=== PATIENT | female | born 1940 | race American Indian/Alaskan Native ===

== ENCOUNTER 2017-05-10 00:28 | Emergency (ER) | payer MEDICARE, OTHER ==
[~2017-05-10] VITALS: Ht 147.3 cm; Wt 65.0 kg
[2017-05-10] MEDS ORDERED: ZIPRASIDONE 20 MG INJ IM ONE ×2 (01:25→01:30)
[2017-05-10 06:21] VITALS: BP 102/56
== END 2017-05-10 06:26 | disposition home or self-care (01) ==
LOC: ED 00:55
DX: F10.220 Alcohol dependence with intoxication, uncomplicated (principal)
CPT/HCPCS: 96372; 99283; J3486

== ENCOUNTER 2018-01-07 21:42 | Emergency (ER) | payer MEDICARE ==
[~2018-01-07] VITALS: Ht 165.1 cm; Wt 70.0 kg
[2018-01-07] MEDS ORDERED: ONDANSETRON 2MG/ML, 2ML IVPush ONE (22:00)
[2018-01-07] MEDS ORDERED: MORPHINE SULFATE 4 MG/ML, 1ML IVPush PRN (22:00)
[2018-01-07 22:20] LABS: BASOPHILS # (AUTO) 0.05 x10^3/uL (0-0.1); BASOPHILS % (AUTO) 0 % (0-1); EOSINOPHILS # (AUTO) 0.21 x10^3/uL (0-0.4); EOSINOPHILS % (AUTO) 2 % (1-7); LYMPHOCYTES # (AUTO) 2.99 x10^3/uL (1-3.4); LYMPHOCYTES % (AUTO) 24 % (22-44); MD NO; MEAN CORPUSCULAR HEMOGLOBIN 32.6 pg (27.0-34.8); MEAN CORPUSCULAR HGB CONC 33.7 g/dL (32.4-35.8); MEAN CORPUSCULAR VOLUME 96.7 fL (80-100); MEAN PLATELET VOLUME 8.3 fL (7.4-10.4); MONOCYTES # (AUTO) 0.88 x10^3/uL (0.2-0.8); MONOCYTES % (AUTO) 7 % (2-9); NEUTROPHILS # (AUTO) 8.47 x10^3/uL (1.8-6.8); NEUTROPHILS % (AUTO) 67 % (42-75); PLATELET COUNT 287 x10^3/uL (130-400); RED BLOOD COUNT 4.35 x10^6/uL (3.82-5.3); RED CELL DISTRIBUTION WIDTH 13.7 % (9.6-15.2)
[2018-01-07 22:22] LABS: MICROSCOPIC AUTO
[2018-01-07 22:23] LABS: CULTURE INDICATED? YES
[2018-01-07 22:31] LABS: ALBUMIN 3.8 g/dL (3.4-5.0); ANION GAP 4 mmol/L (5-15); CALCIUM 9.3 mg/dL (8.5-10.1); CHLORIDE 104 mmol/L (98-107)
[2018-01-07 22:38] LABS: ALANINE AMINOTRANSFERASE 22 U/L (12-78); ALKALINE PHOSPHATASE 83 U/L (45-117); BILIRUBIN,TOTAL 0.3 mg/dL (0.2-1.0); CREATININE 0.64 mg/dL (0.55-1.02); TOTAL PROTEIN 8.3 g/dL (6.4-8.2)
[2018-01-07 22:48] VITALS: BP 138/72
[2018-01-07] MEDS ORDERED: ONDANSETRON 2MG/ML, 2ML ONE (22:49)
[2018-01-07] MEDS ORDERED: MORPHINE SULFATE 4 MG/ML, 1ML ONE (22:50)
== END 2018-01-07 23:56 | disposition home or self-care (01) ==
LOC: ED 22:51
DX: S39.012A Strain of muscle, fascia and tendon of lower back, initial encounter (principal); N30.00 Acute cystitis without hematuria; I10 Essential (primary) hypertension; E78.5 Hyperlipidemia, unspecified; X58.XXXA Exposure to other specified factors, initial encounter; Y93.89 Activity, other specified; Y92.89 Other specified places as the place of occurrence of the external cause; Y99.8 Other external cause status
CPT/HCPCS: 36415; 74176; 80053; 81001; 83690; 85025; 87077; 87086; 96374; 96375; 99285; J2405; 87186

== ENCOUNTER 2018-01-10 00:54 | Inpatient (IN) | payer MEDICARE ==
[~2018-01-10] VITALS: Ht 147.3 cm; Wt 88.7 kg
[2018-01-10] MEDS ORDERED: ONDANSETRON 2MG/ML, 2ML ONE (01:20)
[2018-01-10] MEDS ORDERED: KETOROLAC 30 MG/1 ML ONE (01:20)
[2018-01-10] MEDS ORDERED: MORPHINE SULFATE 4 MG/ML, 1ML IVPush PRN (01:30)
[2018-01-10] MEDS ORDERED: KETOROLAC 30 MG/1 ML IVPush ONE (01:30)
[2018-01-10] MEDS ORDERED: SODIUM CHLORIDE FLUSH 10ML SYR IVF ONE ×2 (01:30→03:30)
[2018-01-10 01:51] LABS: BASOPHILS # (AUTO) 0.05 x10^3/uL (0-0.1); BASOPHILS % (AUTO) 0 % (0-1); EOSINOPHILS # (AUTO) 0.02 x10^3/uL (0-0.4); EOSINOPHILS % (AUTO) 0 % (1-7); LYMPHOCYTES # (AUTO) 1.55 x10^3/uL (1-3.4); LYMPHOCYTES % (AUTO) 11 % (22-44); MD NO; MEAN CORPUSCULAR HEMOGLOBIN 32.3 pg (27.0-34.8); MEAN PLATELET VOLUME 8.1 fL (7.4-10.4); MONOCYTES # (AUTO) 0.93 x10^3/uL (0.2-0.8); MONOCYTES % (AUTO) 7 % (2-9); NEUTROPHILS # (AUTO) 11.22 x10^3/uL (1.8-6.8); NEUTROPHILS % (AUTO) 82 % (42-75); PLATELET COUNT 248 x10^3/uL (130-400); RED BLOOD COUNT 3.88 x10^6/uL (3.82-5.3); RED CELL DISTRIBUTION WIDTH 13.5 % (9.6-15.2)
[2018-01-10 02:00] LABS: ALANINE AMINOTRANSFERASE 17 U/L (12-78); ALBUMIN 3.3 g/dL (3.4-5.0); ANION GAP 5 mmol/L (5-15); CALCIUM 8.8 mg/dL (8.5-10.1); CHLORIDE 98 mmol/L (98-107); CREATININE 0.51 mg/dL (0.55-1.02)
[2018-01-10 02:02] LABS: ALKALINE PHOSPHATASE 68 U/L (45-117); BILIRUBIN,TOTAL 0.6 mg/dL (0.2-1.0); TOTAL PROTEIN 7.5 g/dL (6.4-8.2)
[2018-01-10 02:03] LABS: CULTURE INDICATED? YES; MICROSCOPIC INDICATED
[2018-01-10] MEDS ORDERED: SODIUM CHLORIDE 0.9% 1,000ML IVBOLUS ONE (03:30)
[2018-01-10] MEDS ORDERED: CEFTRIAXONE 500 MG in DEXTROSE 5% 50 ML IV SCH (03:30)
[2018-01-10] MEDS ORDERED: CEFTRIAXONE 1,000 MG in DEXTROSE 5% 50 ML IV SCH (03:30)
[2018-01-10] MEDS ORDERED: CEFTRIAXONE 1,000 MG in DEXTROSE 5% 50 ML IV ONE (04:00)
[2018-01-10] MEDS ORDERED: METHOCARBAMOL 500 MG TABLET PO PRN (05:30)
[2018-01-10] MEDS ORDERED: ONDANSETRON ODT 4 MG PO PRN (05:30)
[2018-01-10] MEDS ORDERED: KETOROLAC 30 MG/1 ML IV PRN (05:30)
[2018-01-10] MEDS ORDERED: ONDANSETRON 2MG/ML, 2ML IVPush PRN (05:30)
[2018-01-10] MEDS ORDERED: POLYETHYLENE GLYCOL 17 GM PACKET PO PRN (05:30)
[2018-01-10] MEDS ORDERED: ACETAMINOPHEN 500 MG TABLET PO PRN (05:30)
[2018-01-10] MEDS ORDERED: morphine SULFATE 10 MG/ML, 1ML IVPush PRN (05:30)
[2018-01-10] MEDS ORDERED: hydrALAzine 20 MG/ML, 1ML IVPush PRN (05:30)
[2018-01-10 06:45] VITALS: BP 127/57
[2018-01-10] MEDS: SODIUM CHLORIDE 0.9% 1,000 ML IV SCH ×2 (07:04→22:10)
[2018-01-10] MEDS: HEPARIN 5,000 UNITS/ML, 1ML SQ SCH ×3 (07:04→22:10)
[2018-01-10 12:50] VITALS: BP 100/64
[2018-01-10 19:28] VITALS: BP 125/65
[2018-01-11 02:22] VITALS: BP 126/76
[2018-01-11] MEDS ORDERED: CEFTRIAXONE 1,000 MG in SODIUM CHLORIDE 0.9% 50 ML IV SCH (04:00)
[2018-01-11] MEDS: HEPARIN 5,000 UNITS/ML, 1ML SQ SCH ×2 (05:43→13:30)
[2018-01-11 06:22] LABS: BASOPHILS # (AUTO) 0.03 x10^3/uL (0-0.1); BASOPHILS % (AUTO) 0 % (0-1); EOSINOPHILS % (AUTO) 2 % (1-7); LYMPHOCYTES % (AUTO) 27 % (22-44); MD NO; MEAN CORPUSCULAR HEMOGLOBIN 32.5 pg (27.0-34.8); MEAN CORPUSCULAR HGB CONC 33.6 g/dL (32.4-35.8); MEAN CORPUSCULAR VOLUME 96.6 fL (80-100); MEAN PLATELET VOLUME 8.6 fL (7.4-10.4); MONOCYTES # (AUTO) 0.76 x10^3/uL (0.2-0.8); MONOCYTES % (AUTO) 9 % (2-9); NEUTROPHILS # (AUTO) 5.07 x10^3/uL (1.8-6.8); NEUTROPHILS % (AUTO) 61 % (42-75); PLATELET COUNT 234 x10^3/uL (130-400); RED BLOOD COUNT 3.51 x10^6/uL (3.82-5.3); RED CELL DISTRIBUTION WIDTH 13.7 % (9.6-15.2)
[2018-01-11 06:29] LABS: ANION GAP 3 mmol/L (5-15); CALCIUM 8.6 mg/dL (8.5-10.1); CHLORIDE 105 mmol/L (98-107)
[2018-01-11 06:50] VITALS: BP 93/72
[2018-01-11] MEDS ORDERED: SULF1TAB24 PO (07:57)
[2018-01-11] MEDS: SODIUM CHLORIDE 0.9% 1,000 ML IV SCH (10:05)
== END 2018-01-11 14:48 | disposition home health service (06) | DRG 644 ==
LOC: ED 01:09 → EDIP 02:56 → 4NOR 04:04 → DCLOUNGE 01-11 14:18
PROVIDERS: ADMIT Hospitalist; ATTEND Hospitalist
DX: E22.2 Syndrome of inappropriate secretion of antidiuretic hormone (principal); N10 Acute pyelonephritis; E86.9 Volume depletion, unspecified; E03.9 Hypothyroidism, unspecified; E78.5 Hyperlipidemia, unspecified; E86.0 Dehydration; I10 Essential (primary) hypertension; M54.5 Low back pain; R11.2 Nausea with vomiting, unspecified
CPT/HCPCS: 36415; 80048; 80053; 81001; 83735; 84100; 85025; 87086; 96374; J0696; J1644; J1885; J7030

== ENCOUNTER 2018-01-17 17:47 | Emergency (ER) | payer MEDICARE ==
[~2018-01-17] VITALS: Ht 147.3 cm; Wt 79.0 kg
[~2018-01-17 17:47] MED LIST: SULF1TAB24 PO
[2018-01-17] MEDS ORDERED: OXYB10TA PO (18:00)
[2018-01-17] MEDS ORDERED: TELM80TA PO (18:00)
[2018-01-17] MEDS ORDERED: CETI10TA18 PO (18:00)
[2018-01-17] MEDS ORDERED: LEVO125T5 PO (18:00)
[2018-01-17] MEDS ORDERED: CALC-534 PO (18:00)
[2018-01-17] MEDS ORDERED: ASPI-515 PO (18:00)
[2018-01-17] MEDS ORDERED: SIMV80TA7 PO (18:00)
[2018-01-17] MEDS ORDERED: HYDR12.58 PO (18:00)
[2018-01-17] MEDS ORDERED: MELO15TA24 PO (18:00)
[2018-01-17] MEDS ORDERED: ALBU8.5H8 INH (18:00)
[2018-01-17 18:59] LABS: MD NO
[2018-01-17 19:06] LABS: BASOPHILS # (AUTO) 0.03 x10^3/uL (0-0.1); BASOPHILS % (AUTO) 1 % (0-1); EOSINOPHILS # (AUTO) 0.11 x10^3/uL (0-0.4); EOSINOPHILS % (AUTO) 2 % (1-7); LYMPHOCYTES # (AUTO) 2.03 x10^3/uL (1-3.4); LYMPHOCYTES % (AUTO) 36 % (22-44); MEAN CORPUSCULAR HEMOGLOBIN 32.8 pg (27.0-34.8); MEAN CORPUSCULAR HGB CONC 34.3 g/dL (32.4-35.8); MEAN CORPUSCULAR VOLUME 95.7 fL (80-100); MEAN PLATELET VOLUME 7.7 fL (7.4-10.4); MONOCYTES # (AUTO) 0.49 x10^3/uL (0.2-0.8); MONOCYTES % (AUTO) 9 % (2-9); NEUTROPHILS # (AUTO) 2.95 x10^3/uL (1.8-6.8); NEUTROPHILS % (AUTO) 53 % (42-75); PLATELET COUNT 375 x10^3/uL (130-400); RED BLOOD COUNT 3.96 x10^6/uL (3.82-5.3); RED CELL DISTRIBUTION WIDTH 13.6 % (9.6-15.2)
[2018-01-17 19:08] LABS: ALBUMIN 3.3 g/dL (3.4-5.0); ANION GAP 6 mmol/L (5-15); CALCIUM 9.3 mg/dL (8.5-10.1); CHLORIDE 104 mmol/L (98-107); CREATININE 0.77 mg/dL (0.55-1.02)
[2018-01-17 19:16] VITALS: BP 123/53
== END 2018-01-17 20:21 | disposition home or self-care (01) ==
LOC: ED 19:35
DX: K64.8 Other hemorrhoids (principal); I10 Essential (primary) hypertension; E78.00 Pure hypercholesterolemia, unspecified; M19.90 Unspecified osteoarthritis, unspecified site; R11.0 Nausea; R42 Dizziness and giddiness; Z90.49 Acquired absence of other specified parts of digestive tract; Z90.710 Acquired absence of both cervix and uterus
CPT/HCPCS: 36415; 80048; 82040; 85025; 99284

== ENCOUNTER 2018-01-29 14:46 | Inpatient (IN) | payer MEDICARE ==
[~2018-01-29] VITALS: Ht 147.3 cm; Wt 85.8 kg
[~2018-01-29 14:46] MED LIST changes: +ALBU8.5H8 INH; +ASPI-515 PO; +CALC-534 PO; +CETI10TA18 PO; +HYDR12.58 PO; +LEVO125T5 PO; +MELO15TA24 PO; +OXYB10TA PO; +SIMV80TA7 PO; +TELM80TA PO
[2018-01-29 15:16] LABS: BASOPHILS # (AUTO) 0.02 x10^3/uL (0-0.1); BASOPHILS % (AUTO) 0 % (0-1); EOSINOPHILS # (AUTO) 0.02 x10^3/uL (0-0.4); EOSINOPHILS % (AUTO) 0 % (1-7); LYMPHOCYTES # (AUTO) 1.19 x10^3/uL (1-3.4); LYMPHOCYTES % (AUTO) 21 % (22-44); MD NO; MEAN CORPUSCULAR HEMOGLOBIN 32.8 pg (27.0-34.8); MEAN CORPUSCULAR VOLUME 93.6 fL (80-100); MEAN PLATELET VOLUME 8.1 fL (7.4-10.4); MONOCYTES # (AUTO) 0.38 x10^3/uL (0.2-0.8); MONOCYTES % (AUTO) 7 % (2-9); NEUTROPHILS # (AUTO) 4.03 x10^3/uL (1.8-6.8); NEUTROPHILS % (AUTO) 71 % (42-75); PLATELET COUNT 331 x10^3/uL (130-400); RED BLOOD COUNT 4.18 x10^6/uL (3.82-5.3)
[2018-01-29 15:28] LABS: ALANINE AMINOTRANSFERASE 23 U/L (12-78); ALBUMIN 3.7 g/dL (3.4-5.0); ANION GAP 6 mmol/L (5-15); CALCIUM 9.4 mg/dL (8.5-10.1); CHLORIDE 96 mmol/L (98-107); CREATININE 0.55 mg/dL (0.55-1.02)
[2018-01-29 15:35] LABS: TROPONIN I < 0.015 ng/mL (0.000-0.045)
[2018-01-29 15:39] LABS: ALKALINE PHOSPHATASE 76 U/L (45-117); BILIRUBIN,TOTAL 0.4 mg/dL (0.2-1.0); THYROID STIMULATING HORMONE 0.218 mIU/L (0.358-3.740); TOTAL PROTEIN 8.4 g/dL (6.4-8.2)
[2018-01-29 16:32] LABS: MICROSCOPIC INDICATED
[2018-01-29 16:38] LABS: CULTURE INDICATED? YES
[2018-01-29] MEDS ORDERED: CEFTRIAXONE PMX 1GM/50ML 50 ML ONE (16:47)
[2018-01-29] MEDS ORDERED: SODIUM CHLORIDE 0.9% 1,000 ML IV ONE (17:00)
[2018-01-29] MEDS ORDERED: CEFTRIAXONE 1,000 MG in SODIUM CHLORIDE 0.9% 50 ML IV ONE (17:00)
[2018-01-29] MEDS ORDERED: POLYETHYLENE GLYCOL 17 GM PACKET PO PRN (17:30)
[2018-01-29] MEDS ORDERED: hydrALAzine 20 MG/ML, 1ML IVPush PRN (17:30)
[2018-01-29] MEDS: HEPARIN 5,000 UNITS/ML, 1ML SQ SCH (17:30)
[2018-01-29] MEDS ORDERED: ACETAMINOPHEN 325 MG TABLET PO PRN (17:30)
[2018-01-29] MEDS ORDERED: DOCUSATE 100 MG CAPSULE PO PRN (17:30)
[2018-01-29] MEDS ORDERED: ONDANSETRON ODT 4 MG PO PRN (17:30)
[2018-01-29] MEDS ORDERED: BISACODYL 10 MG SUPP PR PRN (17:30)
[2018-01-29] MEDS ORDERED: MORPHINE SULFATE 4 MG/ML, 1ML IVPush PRN (17:30)
[2018-01-29] MEDS ORDERED: CEFTRIAXONE 1,000 MG in SODIUM CHLORIDE 0.9% 50 ML IV SCH (17:30)
[2018-01-29 17:43] LABS: ANION GAP 4 mmol/L (5-15); CALCIUM 9.4 mg/dL (8.5-10.1); CHLORIDE 95 mmol/L (98-107); CREATININE 0.67 mg/dL (0.55-1.02)
[2018-01-29 17:45] LABS: FREE T4 (FREE THYROXINE) 1.07 ng/dL (0.76-1.46)
[2018-01-29 17:53] VITALS: BP 117/60
[2018-01-29] MEDS ORDERED: ALBUTEROL SULFATE 2.5 MG/3 ML NPPB PRN (18:00)
[2018-01-29] MEDS ORDERED: SODIUM CHLORIDE 0.9% 1,000 ML IV SCH (18:30)
[2018-01-29 19:29] VITALS: BP 104/67
[2018-01-29 19:46] LABS: ALBUMIN 3.5 g/dL (3.4-5.0); ANION GAP 4 mmol/L (5-15); CHLORIDE 97 mmol/L (98-107)
[2018-01-29 19:50] LABS: CREATININE 0.72 mg/dL (0.55-1.02)
[2018-01-29] MEDS: SIMVASTATIN 40 MG TABLET PO SCH (20:22)
[2018-01-29 22:30] LABS: ALBUMIN 3.1 g/dL (3.4-5.0); ANION GAP 4 mmol/L (5-15); CALCIUM 8.5 mg/dL (8.5-10.1); CHLORIDE 102 mmol/L (98-107); CREATININE 0.47 mg/dL (0.55-1.02)
[2018-01-30] MEDS: HEPARIN 5,000 UNITS/ML, 1ML SQ SCH ×3 (00:18→16:58)
[2018-01-30 01:07] VITALS: BP 116/74
[2018-01-30 02:33] LABS: BASOPHILS # (AUTO) 0.02 x10^3/uL (0-0.1); BASOPHILS % (AUTO) 0 % (0-1); EOSINOPHILS # (AUTO) 0.06 x10^3/uL (0-0.4); EOSINOPHILS % (AUTO) 1 % (1-7); LYMPHOCYTES # (AUTO) 2.08 x10^3/uL (1-3.4); LYMPHOCYTES % (AUTO) 33 % (22-44); MD NO; MEAN CORPUSCULAR HEMOGLOBIN 32.4 pg (27.0-34.8); MEAN CORPUSCULAR HGB CONC 34.3 g/dL (32.4-35.8); MEAN CORPUSCULAR VOLUME 94.4 fL (80-100); MEAN PLATELET VOLUME 8.2 fL (7.4-10.4); MONOCYTES # (AUTO) 0.51 x10^3/uL (0.2-0.8); MONOCYTES % (AUTO) 8 % (2-9); NEUTROPHILS # (AUTO) 3.58 x10^3/uL (1.8-6.8); NEUTROPHILS % (AUTO) 57 % (42-75); PLATELET COUNT 286 x10^3/uL (130-400); RED BLOOD COUNT 3.61 x10^6/uL (3.82-5.3)
[2018-01-30 02:38] LABS: CALCIUM 8.2 mg/dL (8.5-10.1); CHLORIDE 101 mmol/L (98-107)
[2018-01-30 02:44] LABS: ALANINE AMINOTRANSFERASE 18 U/L (12-78); ALKALINE PHOSPHATASE 58 U/L (45-117); ANION GAP 5 mmol/L (5-15); BILIRUBIN,TOTAL 0.4 mg/dL (0.2-1.0); TOTAL PROTEIN 6.7 g/dL (6.4-8.2)
[2018-01-30 03:03] LABS: AMPHETAMINE SCREEN, URINE Negative (Negative); BARBITURATE SCREEN, URINE Negative (Negative); BENZODIAZEPINE SCREEN, URINE Negative (Negative); CANNABINOID SCREEN, URINE Negative (Negative); COCAINE SCREEN, URINE Negative (Negative); METHADONE SCREEN, URINE Negative (Negative); OPIATE SCREEN, URINE Negative (Negative)
[2018-01-30 03:10] LABS: CREATININE,URINE RANDOM 47.8 mg/dL
[2018-01-30] MEDS: PANTOPRAZOLE 40 MG IV IVPush SCH (07:14)
[2018-01-30] MEDS: VALSARTAN 320 MG TABLET PO SCH (07:15)
[2018-01-30] MEDS: CETIRIZINE 10 MG TABLET PO SCH (07:15)
[2018-01-30] MEDS: LEVOTHYROXINE 125 MCG TABLET PO SCH (07:15)
[2018-01-30 07:35] LABS: ALBUMIN 3.1 g/dL (3.4-5.0); ANION GAP 7 mmol/L (5-15); CALCIUM 8.7 mg/dL (8.5-10.1); CHLORIDE 102 mmol/L (98-107); CREATININE 0.51 mg/dL (0.55-1.02)
[2018-01-30 08:30] VITALS: BP 117/68
[2018-01-30 11:00] LABS: ANION GAP 7 mmol/L (5-15); CALCIUM 8.6 mg/dL (8.5-10.1); CHLORIDE 102 mmol/L (98-107); CREATININE 0.59 mg/dL (0.55-1.02)
[2018-01-30 11:01] LABS: ALBUMIN 3.1 g/dL (3.4-5.0)
[2018-01-30 14:25] VITALS: BP 117/62
[2018-01-30 14:56] LABS: CHLORIDE 103 mmol/L (98-107)
[2018-01-30 14:57] LABS: ALBUMIN 3.1 g/dL (3.4-5.0); ANION GAP 5 mmol/L (5-15); CALCIUM 8.5 mg/dL (8.5-10.1); CREATININE 0.65 mg/dL (0.55-1.02)
[2018-01-30] MEDS: SODIUM CHLORIDE 0.9% 1,000 ML IV SCH ×2 (15:30→20:53)
[2018-01-30] MEDS: CEFTRIAXONE 1,000 MG in SODIUM CHLORIDE 0.9% 50 ML IV SCH (16:58)
[2018-01-30 19:31] VITALS: BP 98/60
[2018-01-30] MEDS: SIMVASTATIN 40 MG TABLET PO SCH (20:38)
[2018-01-31 02:19] VITALS: BP 97/53
[2018-01-31] MEDS: HEPARIN 5,000 UNITS/ML, 1ML SQ SCH ×3 (04:22→20:28)
[2018-01-31 06:22] LABS: CHLORIDE 105 mmol/L (98-107)
[2018-01-31 06:38] LABS: ALBUMIN 2.8 g/dL (3.4-5.0); ANION GAP 7 mmol/L (5-15); CALCIUM 8.6 mg/dL (8.5-10.1); CREATININE 0.46 mg/dL (0.55-1.02); THYROID STIMULATING HORMONE 0.774 mIU/L (0.358-3.740)
[2018-01-31] MEDS: CETIRIZINE 10 MG TABLET PO SCH (08:14)
[2018-01-31] MEDS: LEVOTHYROXINE 125 MCG TABLET PO SCH (08:15)
[2018-01-31] MEDS: PANTOPRAZOLE 40 MG IV IVPush SCH (08:15)
[2018-01-31 08:31] VITALS: BP 97/67
[2018-01-31 10:35] VITALS: BP 104/68
[2018-01-31] MEDS: VALSARTAN 320 MG TABLET PO SCH (10:40)
[2018-01-31 13:11] LABS: ALBUMIN 3.2 g/dL (3.4-5.0); ANION GAP 4 mmol/L (5-15); CALCIUM 8.9 mg/dL (8.5-10.1); CHLORIDE 104 mmol/L (98-107); CREATININE 0.61 mg/dL (0.55-1.02)
[2018-01-31 14:22] VITALS: BP 118/80
[2018-01-31] MEDS: CEFTRIAXONE 1,000 MG in SODIUM CHLORIDE 0.9% 50 ML IV SCH (17:04)
[2018-01-31] MEDS: SIMVASTATIN 40 MG TABLET PO SCH (20:28)
[2018-01-31 20:55] VITALS: BP 130/81
[2018-02-01 00:37] VITALS: BP 111/65
[2018-02-01] MEDS: HEPARIN 5,000 UNITS/ML, 1ML SQ SCH (04:47)
[2018-02-01 06:09] LABS: ALBUMIN 3.3 g/dL (3.4-5.0); ANION GAP 6 mmol/L (5-15); CALCIUM 9.2 mg/dL (8.5-10.1); CHLORIDE 103 mmol/L (98-107)
[2018-02-01 07:31] VITALS: BP 113/72
[2018-02-01] MEDS: PANTOPRAZOLE 40 MG IV IVPush SCH (08:47)
[2018-02-01] MEDS: VALSARTAN 320 MG TABLET PO SCH (08:48)
[2018-02-01] MEDS: CETIRIZINE 10 MG TABLET PO SCH (08:48)
[2018-02-01] MEDS: LEVOTHYROXINE 125 MCG TABLET PO SCH (08:48)
[2018-02-01] MEDS ORDERED: CEFD300C37 PO (10:48)
[2018-02-01] MEDS ORDERED: PANT20TA3 PO (10:48)
== END 2018-02-01 12:46 | disposition home health service (06) | DRG 391 ==
LOC: ED 15:08 → EDIP 16:39 → 3NE 17:43 → DCLOUNGE 02-01 12:24
PROVIDERS: ADMIT Hospitalist; ATTEND Hospitalist
PROC: 0T9B70Z Drainage of Bladder with Drainage Device, Via Natural or Artificial Opening (ICD-10-PCS; principal; 2018-01-29)
DX: K29.70 Gastritis, unspecified, without bleeding (principal); G93.41 Metabolic encephalopathy; N30.00 Acute cystitis without hematuria; E87.1 Hypo-osmolality and hyponatremia; E03.9 Hypothyroidism, unspecified; E78.00 Pure hypercholesterolemia, unspecified; E78.5 Hyperlipidemia, unspecified; E86.9 Volume depletion, unspecified; G89.29 Other chronic pain; I10 Essential (primary) hypertension; J30.2 Other seasonal allergic rhinitis; K21.9 Gastro-esophageal reflux disease without esophagitis; M19.90 Unspecified osteoarthritis, unspecified site; M54.9 Dorsalgia, unspecified; K64.9 Unspecified hemorrhoids; Z90.710 Acquired absence of both cervix and uterus; Z99.81 Dependence on supplemental oxygen; Z87.891 Personal history of nicotine dependence
CPT/HCPCS: 36415; 71045; 74018; 80048; 80053; 80307; 81001; 82040; 82140; 82436; 82570; 83690; 83735; 83930; 83935; 84100; 84133; 84300; 84439; 84443; 84484; 85025; 87040; 87077; 87086; 87186; 93005; 96365; G0378; J0696; J1644; Q0162; C9113; J7030

== ENCOUNTER 2018-09-09 20:04 | Emergency (ER) | payer MEDICARE ==
[~2018-09-09] VITALS: Ht 157.5 cm; Wt 77.7 kg
[~2018-09-09 20:04] MED LIST changes: +CEFD300C37 PO; -HYDR12.58 PO; +HYDROCHLOROTH12.5 MG PO; +PANT20TA3 PO; +SIMV80TA18 PO; -SIMV80TA7 PO
--- NOTE | 2018-09-09 20:39 | NUR ---
PT PRESTENTS TO ED WITH N/V/D WITH PLATA AND NOT ABLE TO HOLD FOOD OR DRINK X6MO, WORSENING IN LAST WEEK. WAS ON ABX FOR "SOMETHING I DONT KNOW WHY" PRESCRIBED ADDITIONAL ABX WHICH SHE DID NOT TAKE. PT UNSURE OF WHY SHE WAS PRESCRIBED ABX, STATED "SOMETHING WITH MY STOOL". PT PLACED ON MONITOR, VSS. NAD. CALL [facility] DE [facility]N AT BEDSIDE
[2018-09-09] MEDS ORDERED: ONDANSETRON ODT 4 MG ONE (20:50)
[2018-09-09] MEDS ORDERED: FAMOTIDINE 20 MG TABLET ONE (20:50)
[2018-09-09 20:54] LABS: BASOPHILS # (AUTO) 0.01 x10^3/uL (0-0.1); BASOPHILS % (AUTO) 0 % (0-1); EOSINOPHILS # (AUTO) 0.04 x10^3/uL (0-0.4); EOSINOPHILS % (AUTO) 1 % (1-7); LYMPHOCYTES # (AUTO) 1.71 x10^3/uL (1-3.4); LYMPHOCYTES % (AUTO) 22 % (22-44); MD NO; MEAN CORPUSCULAR HEMOGLOBIN 32.3 pg (27.0-34.8); MEAN CORPUSCULAR HGB CONC 34.6 g/dL (32.4-35.8); MEAN CORPUSCULAR VOLUME 93.5 fL (80-100); MEAN PLATELET VOLUME 8.3 fL (7.4-10.4); MONOCYTES # (AUTO) 0.48 x10^3/uL (0.2-0.8); MONOCYTES % (AUTO) 6 % (2-9); NEUTROPHILS # (AUTO) 5.62 x10^3/uL (1.8-6.8); NEUTROPHILS % (AUTO) 72 % (42-75); PLATELET COUNT 258 x10^3/uL (130-400); RED CELL DISTRIBUTION WIDTH 13.7 % (9.6-15.2)
[2018-09-09] MEDS ORDERED: ONDANSETRON ODT 4 MG PO ONE (21:00)
[2018-09-09] MEDS ORDERED: FAMOTIDINE 20 MG TABLET PO ONE (21:00)
[2018-09-09 21:04] LABS: ALANINE AMINOTRANSFERASE 21 U/L (12-78); ALBUMIN 3.7 g/dL (3.4-5.0); ANION GAP 6 mmol/L (5-15); CALCIUM 9.2 mg/dL (8.5-10.1); CHLORIDE 105 mmol/L (98-107); CREATININE 0.51 mg/dL (0.55-1.02)
[2018-09-09 21:07] LABS: ALKALINE PHOSPHATASE 87 U/L (45-117); BILIRUBIN,TOTAL 0.4 mg/dL (0.2-1.0); TOTAL PROTEIN 7.5 g/dL (6.4-8.2)
[2018-09-09 21:32] VITALS: BP 125/84
[2018-09-09 22:01] LABS: CLOSTRIDIUM DIFFICILE ANTIGEN NEGATIVE; CLOSTRIDIUM DIFFICILE TOXIN NEGATIVE (Negative)
== END 2018-09-09 21:33 | disposition home or self-care (01) ==
LOC: ED 21:27
DX: K29.20 Alcoholic gastritis without bleeding (principal); F10.10 Alcohol abuse, uncomplicated; R19.7 Diarrhea, unspecified; I10 Essential (primary) hypertension; E78.5 Hyperlipidemia, unspecified; Z86.39 Personal history of other endocrine, nutritional and metabolic disease
CPT/HCPCS: 36415; 80053; 80307; 83690; 85025; 87324; 89055; 99283; Q0162

== ENCOUNTER 2018-11-19 13:15 | Emergency (ER) | payer MEDICARE ==
[~2018-11-19] VITALS: Ht 139.7 cm; Wt 80.1 kg
--- NOTE | 2018-11-19 15:01 | NUR ---
PT TO ROOM VIA LOBBY
[2018-11-19 15:20] LABS: BASOPHILS # (AUTO) 0.02 x10^3/uL (0-0.1); BASOPHILS % (AUTO) 0 % (0-1); EOSINOPHILS # (AUTO) 0.08 x10^3/uL (0-0.4); EOSINOPHILS % (AUTO) 1 % (1-7); LYMPHOCYTES % (AUTO) 35 % (22-44); MD NO; MEAN CORPUSCULAR HEMOGLOBIN 32.7 pg (27.0-34.8); MEAN CORPUSCULAR HGB CONC 33.7 g/dL (32.4-35.8); MEAN CORPUSCULAR VOLUME 96.9 fL (80-100); MEAN PLATELET VOLUME 8.6 fL (7.4-10.4); MONOCYTES # (AUTO) 0.44 x10^3/uL (0.2-0.8); MONOCYTES % (AUTO) 7 % (2-9); NEUTROPHILS # (AUTO) 3.52 x10^3/uL (1.8-6.8); NEUTROPHILS % (AUTO) 56 % (42-75); PLATELET COUNT 300 x10^3/uL (130-400); RED BLOOD COUNT 4.37 x10^6/uL (3.82-5.3); RED CELL DISTRIBUTION WIDTH 13.4 % (9.6-15.2)
[2018-11-19 15:25] LABS: ALBUMIN 3.8 g/dL (3.4-5.0); ANION GAP 2 mmol/L (5-15); CALCIUM 9.7 mg/dL (8.5-10.1); CHLORIDE 105 mmol/L (98-107)
--- NOTE | 2018-11-19 15:25 | NUR ---
PT CO OF "STRESS FROM YELLING AT SOMEONE AND WAS SHAKEY" PT STATES " IT IS NOTHING HEART RELATED, I AM NOT EVEN SHAKING ANYMORE"
[2018-11-19 15:30] LABS: CREATININE 0.57 mg/dL (0.55-1.02); TROPONIN I < 0.015 ng/mL (0.000-0.045)
[2018-11-19 15:35] VITALS: BP 138/63
--- NOTE | 2018-11-19 15:50 | NUR ---
Patient/Caregiver given discharge instructions and they have confirmed that they understand the instructions. Patient ambulatory with steady gait.
== END 2018-11-19 16:10 | disposition home or self-care (01) ==
LOC: ED 15:50
DX: F41.1 Generalized anxiety disorder (principal); R07.89 Other chest pain; I10 Essential (primary) hypertension; E78.00 Pure hypercholesterolemia, unspecified; E78.5 Hyperlipidemia, unspecified; Z90.710 Acquired absence of both cervix and uterus; Z90.49 Acquired absence of other specified parts of digestive tract; Z86.39 Personal history of other endocrine, nutritional and metabolic disease
CPT/HCPCS: 36415; 71046; 80048; 82040; 84484; 85025; 93005; 99284

== ENCOUNTER 2020-10-24 06:12 | Inpatient (IN) | payer MEDICARE ==
[2020-10-23 09:46] LABS: BASOPHILS % (AUTO) 1 % (0-1); EOSINOPHILS % (AUTO) 2 % (1-7); LYMPHOCYTES % (AUTO) 35 % (22-44); MEAN CORPUSCULAR HEMOGLOBIN 32.3 pg (27.0-34.8); MEAN PLATELET VOLUME 8.6 fL (7.4-10.4); MONOCYTES % (AUTO) 10 % (2-9); NEUTROPHILS % (AUTO) 53 % (42-75); PLATELET COUNT 291 x10^3/uL (130-400); RED BLOOD COUNT 4.43 x10^6/uL (3.82-5.3); RED CELL DISTRIBUTION WIDTH 13.6 % (9.6-15.2)
[2020-10-23 09:53] LABS: INTERNATIONAL NORMALIZED RATIO 0.94 (0.93-1.1); MD NO; PROTHROMBIN TIME 10.1 Seconds (9.6-11.5)
[2020-10-23 09:55] LABS: HCT (SEDRATE) 42.2 % (34.6-47.8)
[2020-10-23 09:56] LABS: ALANINE AMINOTRANSFERASE 21 U/L (12-78); ALBUMIN 3.7 g/dL (3.4-5.0); ANION GAP 3 mmol/L (5-15); CALCIUM 9.9 mg/dL (8.5-10.1); CHLORIDE 106 mmol/L (98-107); CREATININE 0.56 mg/dL (0.55-1.02)
[2020-10-23 09:57] LABS: ALKALINE PHOSPHATASE 116 U/L (45-117); BILIRUBIN,TOTAL 0.3 mg/dL (0.2-1.0); TOTAL PROTEIN 8.3 g/dL (6.4-8.2)
[~2020-10-24] VITALS: Ht 147.3 cm; Wt 86.5 kg
[~2020-10-24 06:12] MED LIST changes: +ACET650S21 PO; -ASPI-515 PO; +ASPI-963 PO; +FLUT9.9S NAS; +LOSA25TA25 PO; +MULT-717 PO; -OXYB10TA PO; +OXYB10TA26 PO; -PANT20TA3 PO; +PANT20TA4 PO; +SERT-331 PO; +SULF-23 PO; -SULF1TAB24 PO
[2020-10-24] MEDS ORDERED: LACTATED RINGERS 1,000 ML IV SCH (07:00)
[2020-10-24] MEDS ORDERED: VANCOMYCIN 1,800 MG in SODIUM CHLORIDE 0.9% 250 ML IV ONE (07:00)
[2020-10-24] MEDS ORDERED: CHLORHEXIDINE 15 ML UDC PO ONE (07:00)
[2020-10-24] MEDS ORDERED: VANCOMYCIN PER PHARMACY MC PRN (07:00)
[2020-10-24] MEDS ORDERED: VANCOMYCIN 1,000 MG ONE (07:24)
[2020-10-24] MEDS ORDERED: TRANEXAMIC ACID 100 MG/ML, 10ML ONE (07:24)
[2020-10-24] MEDS ORDERED: KETOROLAC 60 MG/2 ML ONE (07:24)
[2020-10-24] MEDS ORDERED: morphine SULFATE/PF 0.5 MG/ML, 10ML ONE (07:24)
[2020-10-24] MEDS ORDERED: ROPIvacaine/PF 0.2%, 20 ML ONE (07:24)
[2020-10-24] MEDS ORDERED: MIDAZOLAM 1 MG/ML, 2ML ONE (07:25)
[2020-10-24] MEDS ORDERED: FENTANYL PF 100 MCG/2ML ONE ×3 (07:25→10:24)
[2020-10-24] MEDS ORDERED: EPINEPHRINE 1 MG/ML, 1ML ONE ×2 (07:25→07:58)
[2020-10-24] MEDS ORDERED: PROPOFOL 10 MG/ML, 20ML ONE (07:56)
[2020-10-24] MEDS ORDERED: CEFAZOLIN 1,000 MG ONE ×2 (07:58)
[2020-10-24] MEDS ORDERED: ROPIvacaine/PF 0.5%, 30 ML ONE (07:58)
[2020-10-24] MEDS ORDERED: ONDANSETRON 2MG/ML, 2ML ONE (07:58)
[2020-10-24] MEDS ORDERED: LIDOCAINE-MPF 2% ,5ML ONE (07:58)
[2020-10-24] MEDS ORDERED: OXYcodone 5 MG/5 ML ORAL.SOL UDC PO PRN (08:00)
[2020-10-24] MEDS ORDERED: hydrALAzine 20 MG/ML, 1ML IV PRN (08:00)
[2020-10-24] MEDS ORDERED: ACETAMINOPHEN 325 MG TABLET PO PRN (08:00)
[2020-10-24] MEDS ORDERED: HYDROmorphone 1 MG/ML, 1ML INJ IVPush PRN (08:00)
[2020-10-24] MEDS ORDERED: LABETALOL 5MG/ML, 20ML IV PRN (08:00)
[2020-10-24] MEDS ORDERED: ONDANSETRON 2MG/ML, 2ML IVPush PRN (08:00)
[2020-10-24] MEDS ORDERED: ACETAMINOPHEN 650 MG/20.3 ML UDC ONE (10:24)
[2020-10-24] MEDS ORDERED: OXYcodone 5 MG/5 ML ORAL.SOL UDC ONE (10:24)
[2020-10-24] MEDS ORDERED: HYDROmorphone 2MG TABLET PO PRN (10:30)
[2020-10-24] MEDS ORDERED: DIPHENHYDRAMINE 50 MG/ML, 1ML IVPush PRN (10:30)
[2020-10-24] MEDS ORDERED: BISACODYL 10 MG SUPP PR PRN (10:30)
[2020-10-24] MEDS ORDERED: LABETALOL 5MG/ML, 20ML IVPush PRN (10:30)
[2020-10-24] MEDS ORDERED: SODIUM CHLORIDE 0.9% 1,000 ML IV PRN (10:30)
[2020-10-24] MEDS ORDERED: PROMETHAZINE 25 MG/ML, 1ML IM PRN (10:30)
[2020-10-24] MEDS ORDERED: OXYcodone IR 5MG TABLET PO PRN (10:30)
[2020-10-24] MEDS ORDERED: DIPHENHYDRAMINE 50 MG/ML, 1ML IM PRN (10:30)
[2020-10-24] MEDS ORDERED: DIAZEPAM 5 MG TABLET PO PRN (10:30)
[2020-10-24] MEDS ORDERED: DIPHENHYDRAMINE 50 MG CAPSULE PO PRN (10:30)
[2020-10-24] MEDS: FENTANYL PF 100 MCG/2ML IV PRN ×3 (10:31→10:55)
[2020-10-24] MEDS ORDERED: KETOROLAC 30 MG/1 ML IVPush ONE (11:00)
[2020-10-24] MEDS ORDERED: METHOCARBAMOL 750 MG in DEXTROSE 5% 100 ML IV SCH (11:00)
[2020-10-24 12:00] VITALS: BP 142/74
[2020-10-24] MEDS: LOSARTAN 25MG TABLET PO SCH (12:00)
[2020-10-24] MEDS ORDERED: DEXAMETHASONE 4 MG/ML, 5ML IVPush PRN (12:00)
[2020-10-24] MEDS: NS + 20MEQ KCL 1,000 ML IV SCH ×2 (12:18→22:14)
[2020-10-24] MEDS: morphine SULFATE 10 MG/ML, 1ML IVPush PRN (13:05)
[2020-10-24] MEDS: HYDROcodone/APAP 5/325 TABLET PO PRN (14:49)
[2020-10-24] MEDS: CEFAZOLIN PMX 1GM/50ML 50 ML IVPB SCH (15:45)
[2020-10-24] MEDS: ONDANSETRON 2MG/ML, 2ML IV PRN (17:07)
[2020-10-24 20:33] VITALS: BP 114/61
[2020-10-24] MEDS ORDERED: ASPIRIN 325 MG TABLET PO SCH (21:00)
[2020-10-24] MEDS ORDERED: ZOLPIDEM 5MG TABLET PO PRN (21:00)
[2020-10-24] MEDS: FLUTICASONE NASAL SPRAY 16GM NAS SCH (21:00)
[2020-10-24] MEDS: KETOROLAC 30 MG/1 ML IVPush PRN (21:29)
[2020-10-24] MEDS: METHOCARBAMOL 750 MG in DEXTROSE 5% 100 ML IV SCH (22:00)
[2020-10-24] MEDS: ASPIRIN 325 MG TABLET PO SCH (22:15)
[2020-10-25 00:21] VITALS: BP 111/75
[2020-10-25] MEDS: CEFAZOLIN PMX 1GM/50ML 50 ML IVPB SCH (00:35)
[2020-10-25] MEDS: HYDROcodone/APAP 5/325 TABLET PO PRN ×4 (01:35→20:51)
[2020-10-25 03:43] VITALS: BP 118/73
[2020-10-25 04:42] LABS: BASOPHILS % (AUTO) 0 % (0-1); EOSINOPHILS % (AUTO) 0 % (1-7); LYMPHOCYTES % (AUTO) 10 % (22-44); MD NO; MEAN CORPUSCULAR HEMOGLOBIN 32.8 pg (27.0-34.8); MEAN CORPUSCULAR HGB CONC 34.2 g/dL (32.4-35.8); MEAN PLATELET VOLUME 8.5 fL (7.4-10.4); MONOCYTES % (AUTO) 9 % (2-9); NEUTROPHILS % (AUTO) 81 % (42-75); PLATELET COUNT 235 x10^3/uL (130-400); RED BLOOD COUNT 3.48 x10^6/uL (3.82-5.3); RED CELL DISTRIBUTION WIDTH 13.8 % (9.6-15.2)
[2020-10-25] MEDS: LEVOTHYROXINE 125 MCG TABLET PO SCH (06:19)
[2020-10-25] MEDS: KETOROLAC 30 MG/1 ML IVPush PRN ×2 (06:20→20:51)
[2020-10-25] MEDS: METHOCARBAMOL 750 MG in DEXTROSE 5% 100 ML IV SCH ×3 (06:20→22:04)
[2020-10-25 06:30] VITALS: BP 109/64
[2020-10-25] MEDS ORDERED: ALBUTEROL SULFATE 2.5 MG/3 ML NPPB PRN (06:30)
[2020-10-25] MEDS: FLUTICASONE NASAL SPRAY 16GM NAS SCH ×2 (08:12→20:46)
[2020-10-25] MEDS ORDERED: ALBUTEROL HFA 90 MCG/SPRAY INH SCH (09:00)
[2020-10-25] MEDS ORDERED: LOSARTAN 25MG TABLET PO SCH (09:00)
[2020-10-25] MEDS: ASPIRIN 325 MG TABLET PO SCH ×2 (09:16→20:51)
[2020-10-25] MEDS: SERTRALINE 50MG TABLET PO SCH (09:17)
[2020-10-25] MEDS: LOSARTAN 25MG TABLET PO SCH (09:21)
[2020-10-25] MEDS: LORazepam 1MG TABLET PO PRN (10:57)
[2020-10-25] MEDS ORDERED: NEOSTIGMINE 1 MG/ML, 10ML ONE (11:47)
[2020-10-25] MEDS ORDERED: FENTANYL PF 100 MCG/2ML ONE (11:47)
[2020-10-25] MEDS ORDERED: SUCCINYLCHOLINE 20 MG/ML, 10ML ONE (11:47)
[2020-10-25] MEDS ORDERED: ROCURONIUM 10MG/ML,5ML ONE (11:47)
[2020-10-25] MEDS ORDERED: CEFAZOLIN 1,000 MG ONE (11:47)
[2020-10-25] MEDS ORDERED: GLYCOPYRROLATE 0.2MG/1ML, 5ML ONE (11:47)
[2020-10-25] MEDS ORDERED: PROPOFOL 10 MG/ML, 20ML ONE (11:47)
[2020-10-25] MEDS ORDERED: ONDANSETRON 2MG/ML, 2ML ONE (11:47)
[2020-10-25] MEDS ORDERED: MIDAZOLAM 1 MG/ML, 5ML ONE (11:47)
[2020-10-25] MEDS ORDERED: TRANEXAMIC ACID 100 MG/ML, 10ML ONE (11:47)
[2020-10-25] MEDS: NS + 20MEQ KCL 1,000 ML IV SCH (13:49)
[2020-10-25 14:20] VITALS: BP 109/62
[2020-10-25 20:28] VITALS: BP 118/74
[2020-10-26 01:26] VITALS: BP 142/84
[2020-10-26] MEDS: HYDROcodone/APAP 5/325 TABLET PO PRN ×4 (01:28→21:31)
[2020-10-26] MEDS: LEVOTHYROXINE 125 MCG TABLET PO SCH (05:41)
[2020-10-26] MEDS: METHOCARBAMOL 750 MG in DEXTROSE 5% 100 ML IV SCH ×3 (05:41→21:47)
[2020-10-26 06:08] LABS: BASOPHILS % (AUTO) 1 % (0-1); EOSINOPHILS % (AUTO) 3 % (1-7); LYMPHOCYTES % (AUTO) 31 % (22-44); MEAN CORPUSCULAR HEMOGLOBIN 32.4 pg (27.0-34.8); MEAN CORPUSCULAR HGB CONC 33.8 g/dL (32.4-35.8); MEAN PLATELET VOLUME 8.6 fL (7.4-10.4); MONOCYTES % (AUTO) 13 % (2-9); NEUTROPHILS % (AUTO) 52 % (42-75); PLATELET COUNT 205 x10^3/uL (130-400); RED BLOOD COUNT 3.38 x10^6/uL (3.82-5.3); RED CELL DISTRIBUTION WIDTH 14.1 % (9.6-15.2)
[2020-10-26 06:13] LABS: MD NO
[2020-10-26 07:21] VITALS: BP 116/72
[2020-10-26] MEDS: SERTRALINE 50MG TABLET PO SCH (08:37)
[2020-10-26] MEDS: ASPIRIN 325 MG TABLET PO SCH ×2 (08:37→21:31)
[2020-10-26] MEDS: LOSARTAN 25MG TABLET PO SCH (08:37)
[2020-10-26] MEDS: SENNA/DOCUSATE TABLET PO PRN (08:37)
[2020-10-26] MEDS: FLUTICASONE NASAL SPRAY 16GM NAS SCH ×2 (08:37→21:31)
[2020-10-26 13:31] VITALS: BP 119/75
[2020-10-26] MEDS: MAGNESIUM HYDROXIDE 8%, 30ML UDC PO PRN (15:21)
[2020-10-26] MEDS: NS + 20MEQ KCL 1,000 ML IV SCH (20:00)
[2020-10-26 21:04] VITALS: BP 138/87
[2020-10-26] MEDS: ONDANSETRON 2MG/ML, 2ML IV PRN (21:18)
[2020-10-27 01:51] VITALS: BP 116/76
[2020-10-27] MEDS: ACETAMINOPHEN 500 MG TABLET PO PRN ×2 (01:56→20:15)
[2020-10-27] MEDS: KETOROLAC 30 MG/1 ML IVPush PRN (05:02)
[2020-10-27] MEDS: LEVOTHYROXINE 125 MCG TABLET PO SCH (05:02)
[2020-10-27 05:47] LABS: BASOPHILS % (AUTO) 0 % (0-1); EOSINOPHILS % (AUTO) 2 % (1-7); LYMPHOCYTES % (AUTO) 22 % (22-44); MEAN CORPUSCULAR HEMOGLOBIN 33.1 pg (27.0-34.8); MEAN CORPUSCULAR HGB CONC 34.3 g/dL (32.4-35.8); MEAN PLATELET VOLUME 8.6 fL (7.4-10.4); MONOCYTES % (AUTO) 10 % (2-9); NEUTROPHILS % (AUTO) 67 % (42-75); PLATELET COUNT 220 x10^3/uL (130-400); RED BLOOD COUNT 3.31 x10^6/uL (3.82-5.3); RED CELL DISTRIBUTION WIDTH 14.1 % (9.6-15.2)
[2020-10-27] MEDS: NS + 20MEQ KCL 1,000 ML IV SCH ×2 (06:00→15:26)
[2020-10-27 06:08] LABS: MD NO
[2020-10-27] MEDS: METHOCARBAMOL 750 MG in DEXTROSE 5% 100 ML IV SCH ×3 (06:36→21:56)
[2020-10-27 06:50] VITALS: BP 120/68
[2020-10-27] MEDS: SERTRALINE 50MG TABLET PO SCH (07:55)
[2020-10-27] MEDS: LOSARTAN 25MG TABLET PO SCH (07:55)
[2020-10-27] MEDS: ASPIRIN 325 MG TABLET PO SCH ×2 (07:55→20:15)
[2020-10-27] MEDS: FLUTICASONE NASAL SPRAY 16GM NAS SCH ×2 (07:56→20:14)
[2020-10-27 13:50] VITALS: BP 118/62
[2020-10-27] MEDS ORDERED: PHENOL THROAT SPRAY BOTTLE MM PRN (16:00)
[2020-10-27 19:00] VITALS: BP 115/71
[2020-10-28 00:47] VITALS: BP 110/58
[2020-10-28] MEDS: NS + 20MEQ KCL 1,000 ML IV SCH ×3 (02:00→21:57)
[2020-10-28] MEDS: LEVOTHYROXINE 125 MCG TABLET PO SCH (04:31)
[2020-10-28] MEDS: KETOROLAC 30 MG/1 ML IVPush PRN ×2 (04:31→21:13)
[2020-10-28] MEDS: ACETAMINOPHEN 500 MG TABLET PO PRN ×2 (04:31→21:13)
[2020-10-28 05:51] LABS: BASOPHILS % (AUTO) 0 % (0-1); EOSINOPHILS % (AUTO) 2 % (1-7); LYMPHOCYTES % (AUTO) 21 % (22-44); MEAN CORPUSCULAR HEMOGLOBIN 32.6 pg (27.0-34.8); MEAN CORPUSCULAR HGB CONC 34.1 g/dL (32.4-35.8); MEAN PLATELET VOLUME 8.4 fL (7.4-10.4); MONOCYTES % (AUTO) 8 % (2-9); NEUTROPHILS % (AUTO) 69 % (42-75); PLATELET COUNT 231 x10^3/uL (130-400); RED BLOOD COUNT 3.24 x10^6/uL (3.82-5.3); RED CELL DISTRIBUTION WIDTH 13.4 % (9.6-15.2)
[2020-10-28 06:12] LABS: MD NO
[2020-10-28] MEDS: METHOCARBAMOL 750 MG in DEXTROSE 5% 100 ML IV SCH ×3 (06:13→21:57)
[2020-10-28 07:35] VITALS: BP 142/81
[2020-10-28] MEDS: LOSARTAN 25MG TABLET PO SCH (07:47)
[2020-10-28] MEDS: SERTRALINE 50MG TABLET PO SCH (07:47)
[2020-10-28] MEDS: FLUTICASONE NASAL SPRAY 16GM NAS SCH ×2 (07:47→21:42)
[2020-10-28] MEDS: ASPIRIN 325 MG TABLET PO SCH ×2 (07:47→21:40)
[2020-10-28 13:05] VITALS: BP 126/80
[2020-10-28 18:39] VITALS: BP 110/71
[2020-10-28] MEDS: SENNA/DOCUSATE TABLET PO PRN (21:40)
[2020-10-29 01:35] VITALS: BP 121/72
[2020-10-29] MEDS: OXYcodone IR 5MG TABLET PO PRN (02:24)
[2020-10-29] MEDS: KETOROLAC 30 MG/1 ML IVPush PRN (05:54)
[2020-10-29] MEDS: METHOCARBAMOL 750 MG in DEXTROSE 5% 100 ML IV SCH ×3 (05:54→21:45)
[2020-10-29] MEDS: LEVOTHYROXINE 125 MCG TABLET PO SCH (05:55)
[2020-10-29] MEDS: ACETAMINOPHEN 500 MG TABLET PO PRN (05:55)
[2020-10-29 05:59] LABS: BASOPHILS % (AUTO) 1 % (0-1); EOSINOPHILS % (AUTO) 4 % (1-7); LYMPHOCYTES % (AUTO) 28 % (22-44); MEAN CORPUSCULAR HEMOGLOBIN 32.2 pg (27.0-34.8); MEAN CORPUSCULAR HGB CONC 33.5 g/dL (32.4-35.8); MEAN PLATELET VOLUME 8.1 fL (7.4-10.4); MONOCYTES % (AUTO) 11 % (2-9); NEUTROPHILS % (AUTO) 57 % (42-75); PLATELET COUNT 253 x10^3/uL (130-400); RED BLOOD COUNT 3.22 x10^6/uL (3.82-5.3); RED CELL DISTRIBUTION WIDTH 13.6 % (9.6-15.2)
[2020-10-29 06:37] LABS: MD NO
[2020-10-29] MEDS: NS + 20MEQ KCL 1,000 ML IV SCH ×2 (08:00→20:00)
[2020-10-29 08:10] VITALS: BP 129/58
[2020-10-29] MEDS: FLUTICASONE NASAL SPRAY 16GM NAS SCH ×2 (08:22→21:44)
[2020-10-29] MEDS: LOSARTAN 25MG TABLET PO SCH (08:23)
[2020-10-29] MEDS: SERTRALINE 50MG TABLET PO SCH (08:23)
[2020-10-29] MEDS: ASPIRIN 325 MG TABLET PO SCH ×2 (08:23→21:44)
--- NOTE | 2020-10-29 11:00 | NUR ---
NURSING ACTIVITY SHEET (REVIEWED WITH RN AND PATIENT) POSTED ON BOARD: 1. AMBULATE TO THE RESTROOM TO USE THE COMMODE OVER TOILET. Pt IS TO DO HER BEST NOT TO SOIL THE BED OR THE FLOOR. 2. UP IN CHAIR AT LEAST 3X'S A DAY FOR MEALS. 3. 4-5X'S A DAY EXERCISES: SUPINE AND SEATED TOTAL KNEE EXERCISES PER TOTAL JOINT BOOK. Addendum: 10/29/20 at 1531 by ROSA RODRIGUEZ PTA Amended: Links added.
[2020-10-29 13:56] VITALS: BP 108/63
[2020-10-29] MEDS: DICLOFENAC SODIUM 75 MG TABLET.DR PO SCH (16:49)
[2020-10-29 20:21] VITALS: BP 110/51
[2020-10-30] MEDS: OXYcodone IR 5MG TABLET PO PRN ×2 (00:17→06:32)
[2020-10-30 00:48] VITALS: BP 108/55
[2020-10-30 05:09] LABS: BASOPHILS % (AUTO) 0 % (0-1); EOSINOPHILS % (AUTO) 4 % (1-7); LYMPHOCYTES % (AUTO) 31 % (22-44); MD NO; MEAN CORPUSCULAR HEMOGLOBIN 32.2 pg (27.0-34.8); MEAN CORPUSCULAR HGB CONC 34.1 g/dL (32.4-35.8); MEAN PLATELET VOLUME 7.9 fL (7.4-10.4); MONOCYTES % (AUTO) 10 % (2-9); NEUTROPHILS % (AUTO) 55 % (42-75); PLATELET COUNT 267 x10^3/uL (130-400); RED BLOOD COUNT 3.35 x10^6/uL (3.82-5.3); RED CELL DISTRIBUTION WIDTH 13.6 % (9.6-15.2)
[2020-10-30] MEDS: NS + 20MEQ KCL 1,000 ML IV SCH ×2 (05:59→20:00)
[2020-10-30] MEDS: METHOCARBAMOL 750 MG in DEXTROSE 5% 100 ML IV SCH ×3 (06:00→23:39)
[2020-10-30] MEDS: LEVOTHYROXINE 125 MCG TABLET PO SCH (06:32)
[2020-10-30 07:01] VITALS: BP 146/79
[2020-10-30] MEDS: ASPIRIN 325 MG TABLET PO SCH ×2 (08:27→23:39)
[2020-10-30] MEDS: SERTRALINE 50MG TABLET PO SCH (08:27)
[2020-10-30] MEDS: DICLOFENAC SODIUM 75 MG TABLET.DR PO SCH ×2 (08:27→18:18)
[2020-10-30] MEDS: FLUTICASONE NASAL SPRAY 16GM NAS SCH ×2 (08:27→23:40)
[2020-10-30] MEDS: LOSARTAN 25MG TABLET PO SCH (08:27)
[2020-10-30 12:45] VITALS: BP 124/65
[2020-10-30 19:52] VITALS: BP 95/58
[2020-10-31 02:25] VITALS: BP 101/64
[2020-10-31] MEDS: NS + 20MEQ KCL 1,000 ML IV SCH ×2 (06:00→16:00)
[2020-10-31 06:02] LABS: BASOPHILS % (AUTO) 1 % (0-1); EOSINOPHILS % (AUTO) 5 % (1-7); LYMPHOCYTES % (AUTO) 27 % (22-44); MEAN CORPUSCULAR HEMOGLOBIN 32.5 pg (27.0-34.8); MEAN CORPUSCULAR HGB CONC 34.3 g/dL (32.4-35.8); MEAN PLATELET VOLUME 8.3 fL (7.4-10.4); MONOCYTES % (AUTO) 11 % (2-9); NEUTROPHILS % (AUTO) 56 % (42-75); PLATELET COUNT 266 x10^3/uL (130-400); RED BLOOD COUNT 3.33 x10^6/uL (3.82-5.3); RED CELL DISTRIBUTION WIDTH 13.9 % (9.6-15.2)
[2020-10-31] MEDS: METHOCARBAMOL 750 MG in DEXTROSE 5% 100 ML IV SCH ×3 (06:08→22:00)
[2020-10-31 06:09] LABS: MD NO
[2020-10-31] MEDS: LEVOTHYROXINE 125 MCG TABLET PO SCH (06:09)
[2020-10-31] MEDS: OXYcodone IR 5MG TABLET PO PRN ×3 (06:47→17:28)
[2020-10-31 07:10] VITALS: BP 113/68
[2020-10-31] MEDS: FLUTICASONE NASAL SPRAY 16GM NAS SCH ×2 (08:24→23:19)
[2020-10-31] MEDS: SERTRALINE 50MG TABLET PO SCH (08:25)
[2020-10-31] MEDS: DICLOFENAC SODIUM 75 MG TABLET.DR PO SCH ×2 (08:25→17:28)
[2020-10-31] MEDS: ASPIRIN 325 MG TABLET PO SCH ×2 (08:25→23:19)
[2020-10-31] MEDS: LOSARTAN 25MG TABLET PO SCH (08:25)
[2020-10-31 12:35] VITALS: BP 138/77
[2020-10-31] MEDS: morphine SULFATE 10 MG/ML, 1ML IVPush PRN (13:50)
[2020-10-31] MEDS: ACETAMINOPHEN 500 MG TABLET PO PRN (17:28)
[2020-10-31 20:48] VITALS: BP 109/75
[2020-11-01] MEDS: NS + 20MEQ KCL 1,000 ML IV SCH ×3 (02:00→22:00)
[2020-11-01 02:25] VITALS: BP 138/83
[2020-11-01 05:10] LABS: BASOPHILS % (AUTO) 0 % (0-1); EOSINOPHILS % (AUTO) 5 % (1-7); LYMPHOCYTES % (AUTO) 29 % (22-44); MEAN CORPUSCULAR HEMOGLOBIN 32.4 pg (27.0-34.8); MEAN PLATELET VOLUME 7.6 fL (7.4-10.4); MONOCYTES % (AUTO) 12 % (2-9); NEUTROPHILS % (AUTO) 54 % (42-75); PLATELET COUNT 298 x10^3/uL (130-400); RED CELL DISTRIBUTION WIDTH 13.8 % (9.6-15.2)
[2020-11-01 05:27] LABS: MD NO
[2020-11-01] MEDS: METHOCARBAMOL 750 MG in DEXTROSE 5% 100 ML IV SCH ×3 (05:31→22:00)
[2020-11-01] MEDS: LEVOTHYROXINE 125 MCG TABLET PO SCH (06:32)
[2020-11-01] MEDS: DICLOFENAC SODIUM 75 MG TABLET.DR PO SCH ×2 (08:32→17:56)
[2020-11-01] MEDS: OXYcodone IR 5MG TABLET PO PRN ×2 (08:32→17:56)
[2020-11-01] MEDS: SERTRALINE 50MG TABLET PO SCH (08:32)
[2020-11-01] MEDS: ASPIRIN 325 MG TABLET PO SCH ×2 (08:32→22:21)
[2020-11-01] MEDS: FLUTICASONE NASAL SPRAY 16GM NAS SCH ×2 (08:35→22:21)
[2020-11-01 08:36] VITALS: BP 113/69
[2020-11-01] MEDS: LOSARTAN 25MG TABLET PO SCH (08:37)
[2020-11-01] MEDS: SENNA/DOCUSATE TABLET PO PRN (09:12)
[2020-11-01] MEDS: MAGNESIUM HYDROXIDE 8%, 30ML UDC PO PRN (09:12)
[2020-11-01 13:15] VITALS: BP_SYST 102; BP_SYST 93; BP_DIAS 58; BP_DIAS 63
[2020-11-01 18:58] VITALS: BP 118/71
[2020-11-02 00:26] VITALS: BP 109/68
[2020-11-02] MEDS: METHOCARBAMOL 750 MG in DEXTROSE 5% 100 ML IV SCH ×2 (06:00→13:59)
[2020-11-02 06:10] LABS: BASOPHILS % (AUTO) 0 % (0-1); EOSINOPHILS % (AUTO) 4 % (1-7); LYMPHOCYTES % (AUTO) 25 % (22-44); MEAN CORPUSCULAR HEMOGLOBIN 32.1 pg (27.0-34.8); MEAN CORPUSCULAR HGB CONC 33.5 g/dL (32.4-35.8); MEAN PLATELET VOLUME 7.6 fL (7.4-10.4); MONOCYTES % (AUTO) 10 % (2-9); NEUTROPHILS % (AUTO) 61 % (42-75); PLATELET COUNT 335 x10^3/uL (130-400); RED BLOOD COUNT 3.47 x10^6/uL (3.82-5.3); RED CELL DISTRIBUTION WIDTH 13.5 % (9.6-15.2)
[2020-11-02 06:22] LABS: MD NO
[2020-11-02] MEDS: LEVOTHYROXINE 125 MCG TABLET PO SCH (07:39)
[2020-11-02 07:54] VITALS: BP 122/72
[2020-11-02] MEDS: NS + 20MEQ KCL 1,000 ML IV SCH ×2 (08:00→17:59)
[2020-11-02] MEDS: DICLOFENAC SODIUM 75 MG TABLET.DR PO SCH ×2 (08:56→16:45)
[2020-11-02] MEDS: ASPIRIN 325 MG TABLET PO SCH ×2 (08:56→20:39)
[2020-11-02] MEDS: SERTRALINE 50MG TABLET PO SCH (08:56)
[2020-11-02] MEDS: LOSARTAN 25MG TABLET PO SCH (08:56)
[2020-11-02] MEDS: FLUTICASONE NASAL SPRAY 16GM NAS SCH ×2 (08:57→20:39)
[2020-11-02] MEDS: OXYcodone IR 5MG TABLET PO PRN (09:06)
[2020-11-02 13:04] VITALS: BP 125/68
[2020-11-02 19:01] VITALS: BP 127/76
[2020-11-03 00:36] VITALS: BP 113/69
[2020-11-03] MEDS: OXYcodone IR 5MG TABLET PO PRN (00:41)
[2020-11-03] MEDS: LORazepam 1MG TABLET PO PRN (01:05)
[2020-11-03 05:35] LABS: BASOPHILS % (AUTO) 1 % (0-1); EOSINOPHILS % (AUTO) 3 % (1-7); LYMPHOCYTES % (AUTO) 26 % (22-44); MEAN CORPUSCULAR HEMOGLOBIN 32.4 pg (27.0-34.8); MEAN CORPUSCULAR HGB CONC 34.2 g/dL (32.4-35.8); MEAN PLATELET VOLUME 7.8 fL (7.4-10.4); MONOCYTES % (AUTO) 9 % (2-9); NEUTROPHILS % (AUTO) 61 % (42-75); PLATELET COUNT 325 x10^3/uL (130-400); RED BLOOD COUNT 3.43 x10^6/uL (3.82-5.3); RED CELL DISTRIBUTION WIDTH 13.9 % (9.6-15.2)
[2020-11-03 05:37] LABS: MD NO
[2020-11-03] MEDS: LEVOTHYROXINE 125 MCG TABLET PO SCH (06:03)
[2020-11-03 06:48] VITALS: BP 115/77
[2020-11-03 08:10] VITALS: BP 136/80
[2020-11-03] MEDS: FLUTICASONE NASAL SPRAY 16GM NAS SCH (08:11)
[2020-11-03] MEDS: SERTRALINE 50MG TABLET PO SCH (08:12)
[2020-11-03] MEDS: METHOCARBAMOL 750 MG TABLET PO PRN ×2 (08:12→15:00)
[2020-11-03] MEDS: DICLOFENAC SODIUM 75 MG TABLET.DR PO SCH (08:12)
[2020-11-03] MEDS: LOSARTAN 25MG TABLET PO SCH (08:12)
[2020-11-03] MEDS: ASPIRIN 325 MG TABLET PO SCH (08:22)
[2020-11-03] MEDS ORDERED: FAMOTIDINE 20 MG TABLET PO SCH (09:00)
[2020-11-03] MEDS: ACETAMINOPHEN 500 MG TABLET PO PRN (10:41)
[2020-11-03 12:43] VITALS: BP 96/60
[2020-11-03] MEDS ORDERED: HYDR-3248 PO (14:42)
[2020-11-03] MEDS ORDERED: METH-640 PO (14:43)
[2020-11-03] MEDS ORDERED: ASPI-1026 PO (14:43)
[2020-11-03] MEDS: HYDROcodone/APAP 5/325 TABLET PO PRN (15:00)
== END 2020-11-03 15:00 | DRG 470 ==
LOC: OUT 06:12 → ORIP 10:18 → 4NE 11:43
PROVIDERS: ADMIT Orthopaedic Surgery Orthopaedic Surgery of the Spine; ATTEND Orthopaedic Surgery Orthopaedic Surgery of the Spine
PROC: 0SRD069 Replacement of Left Knee Joint with Oxidized Zirconium on Polyethylene Synthetic Substitute, Cemented, Open Approach (ICD-10-PCS; principal; 2020-10-24 08:00)
DX: M17.12 Unilateral primary osteoarthritis, left knee (principal); Z20.822 Contact with and (suspected) exposure to COVID-19; E66.9 Obesity, unspecified; Z86.73 Personal history of transient ischemic attack (TIA), and cerebral infarction without residual deficits; Z68.39 Body mass index [BMI] 39.0-39.9, adult
CPT/HCPCS: 36415; 71046; 80053; 83036; 85025; 85610; 85651; 85730; 87081; 87635; 93005; C1713; G0378; J0171; J0690; J1100; J1170; J1885; J2250; J2274; J2405; J2550; J2704; J2710; J2795; J3010; J3370; J3480; U0005; C1776; J0330; J2270; J2800; J7050; J7120; U0003